=== PATIENT | female | born 1990 | race Caucasian/White ===

== ENCOUNTER → 2018-05-23 11:23 | Outpatient (CLI) | payer OTHER, SELFPAY | PROVIDERS: Visit Provider Physician Assistant | DX: R07.0 Pain in throat (principal) | CPT/HCPCS: 87070 ==

== ENCOUNTER 2025-02-22 02:06 | Emergency (ER) | payer OTHER, SELFPAY ==
[2025-02-22] VITALS (8 sets, daily range): BP systolic 137–153; BP diastolic 65–86; PULSE 68–84; RESP 15–18; TEMP 36.6–37.1; O2SAT 97–99; BMI 28.9
--- NOTE | 2025-02-22 02:23 | DI.CT.S_ITS ---
PROCEDURE: CT ABDOMEN PELVIS W CON INDICATIONS: ab pain with IBS TECHNIQUE: After the administration of intravenous contrast, axial sections acquired from the lung bases to the pubic symphysis. Coronal and sagittal reformats were performed. For radiation dose reduction, the following was used: automated exposure control, adjustment of mA and/or kV according to patient size. COMPARISON: None. FINDINGS: Image quality: Diagnostic. Lower Chest: No significant findings. ABDOMEN: Liver: No solid mass. Gallbladder: No radiopaque gallstones or wall thickening. Biliary ducts: No biliary dilation. Pancreas: No ductal dilation. Spleen: Size is within normal limits. Adrenal Glands: No adrenal nodules. Kidneys and Ureters: No hydronephrosis. No solid mass. No complex renal cystic lesion which requires follow up. Stomach and Bowel: Normal colonic caliber, without significant wall thickening. Diverticulosis. Normal appendix. Peritoneum: No abnormal intraperitoneal fluid. No free air. Ventral Wall: No significant ventral hernia. Abdominal Nodes: No retroperitoneal or mesenteric adenopathy by size criteria. Vessels: Aorta and inferior vena cava are normal in size. PELVIS: Pelvic Organs: Unremarkable. Bladder: No bladder wall thickening, accounting for underdistention. Pelvic Nodes: No enlarged lymph nodes. Miscellaneous: No inguinal hernias are seen. Bones: No aggressive osseous abnormality. IMPRESSION: 1. No acute abdominal process noted. 2. Diverticulosis. 3. Normal appendix. Comment: Final report is concordant with preliminary interpretation provided by [facility]. Dictated by: Manolo Martinez M.D. on 02/22/2025 at 9:12 Approved by: Manolo Martinez M.D. on 02/22/2025 at 9:15
--- NOTE | 2025-02-22 02:25 | ED.ABDPAIN ---
HPI - Abdominal Pain General Chief Complaint: Abdominal Pain Stated Complaint: Abdominal Pain, Nausea Time Seen by Provider: 02/22/25 02:16 History of Present Illness HPI narrative: Patient is a 34-year-old female history of IBS presenting today with increasing abdominal pain. She reports it over the last couple of weeks she has had some change in bowel habits which she reports with more abnormal than usual. She has started taking Metamucil she started noticing that her stool was more narrow she had some upper abdominal cramping and some rectal pain today. She admits that at home she had significant anxiety about this. He reports no pain now. She has been chilled throughout the day but no significant fever she feels nauseous but no vomiting. She has had 2 prior C-sections but no other abdominal surgeries Related Data Home Medications ?Medication ?Instructions ?Recorded ?Confirmed labetalol 200 mg tablet 200 mg PO TID 02/22/25 02/22/25 Allergies Allergy/AdvReac Type Severity Reaction Status Date / Time No Known Drug Allergies Allergy Verified 02/22/25 02:19 Patient History Social History Smoking Status: Never smoker Exam Initial Vital Signs Initial Vital Signs: Vital Signs Temperature 98 F 02/22/25 02:20 Pulse Rate 84 02/22/25 02:20 Respiratory Rate 15 02/22/25 02:20 Blood Pressure 153/86 H 02/22/25 02:20 Pulse Oximetry 99 02/22/25 02:20 Oxygen Delivery Method Room Air 02/22/25 02:20 GENERAL: Alert well-appearing 34-year-old female and in no acute distress. HEENT: Head atraumatic,EOMI, pupils reactive, face symmetric, moist mucous membranes CARDIOVASCULAR: Regular rate and rhythm without murmurs, rubs or gallops. RESPIRATORY: Breath sounds equal bilaterally, no wheezes rales or rhonchi. ABDOMEN: Soft, nontender. Normoactive bowel sounds all 4 quadrants. No guarding or rebound. EXTREMITIES: Normal range of motion, no clubbing or edema. Neurovascularly intact NEUROLOGICAL: Alert and oriented x4.Normal gait and speech. Cranial nerves II through XII grossly intact. SKIN: Warm, dry, no laceration, no petechiae, no rashes or lesions. Course Orders Ordered: ED Orders 02/22/25 02:23 CT abdomen pelvis w con Stat 02/22/25 02:32 Urine Microscopic Stat 02/22/25 02:49 Complete Blood Count AUTO DIFF Stat Comprehensive Metabolic Panel Stat Lactate (Lactic Acid) Stat Lipase Stat Vital Signs Vital signs: Vital Signs - 8 hr 02/22/25 02:20 02/22/25 02:50 02/22/25 03:00 Temperature 98 F Pulse Rate 84 70 71 Respiratory Rate 15 16 16 Blood Pressure 153/86 H 145/77 H 140/82 Pulse Oximetry 99 97 98 Oxygen Delivery Method Room Air Room Air Room Air 02/22/25 03:30 02/22/25 03:41 02/22/25 04:00 Temperature 98.6 F Pulse Rate 81 78 Respiratory Rate 16 Blood Pressure 150/70 H 137/65 Pulse Oximetry 97 98 Oxygen Delivery Method Room Air Room Air 02/22/25 04:00 02/22/25 04:30 02/22/25 04:30 Temperature Pulse Rate 68 73 Respiratory Rate 18 18 Blood Pressure 149/74 H Pulse Oximetry 97 99 Oxygen Delivery Method Room Air Room Air MDM - Abdominal Pain Lab Data 02/22/25 02:49 02/22/25 02:49 Labs: Lab Results 02/22/25 02/22/25 Range/Units 02:32 02:49 WBC 7.7 (4.5-11.0) X10^3/uL RBC 4.97 (4.0-5.2) X10^6/uL Hgb 13.3 (12.0-16.0) g/dL Hct 39.6 (36-46) % MCV 79.7 L (80-100) fL MCH 26.8 (26-34) PG MCHC 33.6 (30-36) % RDW 13.5 (11.6-14.8) % Plt Count 345 (150-400) X10^3/uL Neut % (Auto) 56.2 (50-75) % Lymph % (Auto) 34.2 (25-40) % Butts % (Auto) 3.6 (3-14) % Eos % (Auto) 2.9 (2-4) % Baso % (Auto) 3.1 H (0-2) % Neut # (Auto) 4300 (5967-7085) /uL Lymph # (Auto) 2600 (4485-8770) /uL Butts # (Auto) 300 (0-900) /uL Eos # (Auto) 200 (0-450) /uL Baso # (Auto) 200 H (0-100) /uL Sodium 140 (137-145) mmol/L Potassium 3.8 (3.4-5.1) mmol/L Chloride 106 (98-107) mmol/L Carbon Dioxide 21 L (22-32) mmol/L BUN 12 (7-17) mg/dL Creatinine 0.77 (0.52-1.04) mg/dL Estimated GFR > 60 (>60) mL/min BUN/Creatinine Ratio 15.6 (6-22) Glucose 118 H (70-99) mg/dL Lactate 2.0 (0.7-2.1) mmol/L Calcium 9.7 (8.4-10.2) mg/dL Total Bilirubin 0.3 (0.2-1.3) mg/dL AST 24 (14-36) IU/L ALT 18 (<35) IU/L Alkaline Phosphatase 62 (38-126) U/L Total Protein 8.0 (6.3-8.2) g/dL Albumin 4.8 (3.5-5.0) g/dL Globulin 3.2 (1.7-4.1) g/dL Albumin/Globulin Ratio 1.5 (1.0-2.8) Lipase 68 (23-300) U/L Urine RBC 10-30/hpf H (0-5/HPF) Urine WBC None seen (0-5/HPF) Ur Squamous Epith Cells 1-5 /hpf (0-5/HPF) Urine Bacteria None seen (None) Ur Culture Indicated? Cult not indicated Vol Urine Centrifuged 10ml (spun) Point of care testing: Point of Care Testing Test Results Negative Urine Dip Bedside Urine Glucose Negative Bedside Urine Bilirubin - Negative Bedside Urine Ketone - Negative Urine Specific [place] 1.010 Bedside Urine Occult Blood +++ Bedside Urine pH 6.0 Bedside Urine Protein - Negative Bedside Urine Urobilinogen - Negative Bedside Urine Nitrite - Negative Bedside Urine Leukocytes - Negative Esterase Imaging Data CT scan - abdomen/pelvis: Radiologist's Impression: Preliminary report no acute findings MDM Narrative Medical decision making narrative: Patient is a 34-year-old female history of hypertension on labetalol and IBS presenting to day with abdominal pain and nausea. It has now resolved she has had symptoms on and off for a couple of weeks. Abdomen does not have any peritoneal signs in his nonacute abdomen. Blood work has been reviewed No leukocytosis no anemia no electrolyte abnormalities bilirubin liver enzymes and lipase within normal limits Urinalysis no evidence of UTI CT abdomen pelvis does not find any acute finding Differential diagnosis includes IBS, colitis, diverticulitis, appendicitis, cholelithiasis cholecystitis Patient is re-evaluated she remains anxious awaiting for results as updated the blood work is overall reassuring. But does not need anything for pain at this time she actually has an appointment with a primary care provider next week, she has never been evaluated by GI or had a colonoscopy. We discussed she needs both of this which he understands and agrees to. Discharge Plan Departure Patient Disposition: Home Clinical Impression: Irritable bowel syndrome Instructions: Irritable Bowel Syndrome Activity Restrictions/Additional Instructions: *You have been diagnosed with IBS *What to do: At this time blood work and CAT scanner overall reassuring. I do recommend they follow up with your primary care provider as scheduled and possible GI referral. You will also need an outpatient colonoscopy if you have not already had *Continue to take medications as directed Tylenol Motrin as needed for pain *Follow up with your primary care provider in 2-3 days or call [phone] *Return to ER if you should have increasing abdominal pain bloody stools persistent vomiting or any new, worsening or concerning symptoms Prescriptions: No Action labetalol 200 mg tablet 200 mg PO TID Stand Alone Forms: Patient Portal/API
[2025-02-22 02:57] LABS: Culture Indicated Urine Cult Not Indicated
[2025-02-22 02:59] LABS: Add Manual Diff / Slide Review NO; Hematocrit 39.6 % (36-46); Hemoglobin 13.3 g/dL (12.0-16.0); Lymphocytes Absolute Auto 2600 /uL (1100-4500); Mean Corpuscular HGB Conc 33.6 % (30-36); Mean Corpuscular Hemoglobin 26.8 PG (26-34); Mean Corpuscular Volume 79.7 fL (80-100); Platelet Count 345 X10^3/uL (150-400)
[2025-02-22 03:08] LABS: Alanine Aminotransferase 18 IU/L (<35); Albumin 4.8 g/dL (3.5-5.0); Albumin Globulin Ratio 1.5 (1.0-2.8); Alkaline Phosphatase 62 U/L (38-126); Blood Urea Nitrogen 12 mg/dL (7-17); Calcium 9.7 mg/dL (8.4-10.2); Carbon Dioxide 21 mmol/L (22-32); Chloride 106 mmol/L (98-107); Estimated Glomerular Filt Rate > 60 mL/min (>60); Globulin 3.2 g/dL (1.7-4.1); Glucose 118 mg/dL (70-99); HEMOLYSIS < 15 (0-50); Lactate (Lactic Acid) 2.0 mmol/L (0.7-2.1); Lipase 68 U/L (23-300); Potassium 3.8 mmol/L (3.4-5.1); Sodium 140 mmol/L (137-145); Total Protein 8.0 g/dL (6.3-8.2)
== END 2025-02-22 04:43 | disposition home or self-care (01) ==
PROVIDERS: Emergency Provider Emergency Medicine
DX: K58.9 Irritable bowel syndrome, unspecified (principal); K62.89 Other specified diseases of anus and rectum
CPT/HCPCS: 36415; 74177; 80053; 81003; 81015; 81025; 83605; 83690; 85025; 99283; 99284; Q9967